=== PATIENT | male | born 2000 | race Caucasian/White ===

== ENCOUNTER 2024-01-22 22:33 | Emergency (ER) | payer OTHER, MEDICAID ==
[~2024-01-22] VITALS: Ht 172.7 cm; Wt 72.0 kg
[2024-01-22] MEDS ORDERED: PROPOFOL 200MG/20ML VIAL IV PRN (23:00)
[2024-01-22] MEDS ORDERED: HYDROMORPHONE HCL/PF 2MG/ML INJ IV ONE (23:00)
[2024-01-22 23:10] VITALS: TEMP 36.94740
[2024-01-22] MEDS: ONDANSETRON HCL 4MG/2ML INJ IV ONE (23:20)
[2024-01-22] MEDS: HYDROMORPHONE HCL/PF 1MG/ML INJ IV NR (23:21)
[2024-01-22 23:26] VITALS: TEMP 98.5; O2SAT 100
[2024-01-23] MEDS: SODIUM CHLORIDE 0.9% 1,000 ML IV ONE (00:09)
[2024-01-23] MEDS ORDERED: IBUP-2029 MT (03:03)
[2024-01-23 03:16] VITALS: BP 111/66; PULSE 66; RESP 15; O2SAT 100
== END 2024-01-23 03:24 | disposition home or self-care (01) ==
LOC: ER 22:33
DX: S82.831A Other fracture of upper and lower end of right fibula, initial encounter for closed fracture (principal); X58.XXXA Exposure to other specified factors, initial encounter; Y93.89 Activity, other specified; Y92.89 Other specified places as the place of occurrence of the external cause; Y99.8 Other external cause status
CPT/HCPCS: 73590; 73600; 73610; 27788; 96374; 96375; 99152; 99285; 96361; J2405; J2704; J1170; J7030; Z7610 ×2

== ENCOUNTER 2024-01-28 15:12 | Emergency (ER) | payer MEDICAID ==
[~2024-01-28] VITALS: Ht 170.2 cm; Wt 77.0 kg
[~2024-01-28 15:12] MED LIST: IBUP-2029 MT
[2024-01-28 15:19] VITALS: O2SAT 99
[2024-01-28 16:07] VITALS: BP 116/74; PULSE 64; RESP 16; TEMP 98; O2SAT 99
== END 2024-01-28 16:58 | disposition home or self-care (01) ==
LOC: ER 15:12
DX: S93.04XA Dislocation of right ankle joint, initial encounter (principal); X58.XXXA Exposure to other specified factors, initial encounter; Y93.89 Activity, other specified; Y92.89 Other specified places as the place of occurrence of the external cause; Y99.8 Other external cause status
CPT/HCPCS: 73610; 99283